=== PATIENT | female | born 1940 | race Caucasian/White ===

== ENCOUNTER → 2018-04-02 08:58 | Outpatient (CLI) | payer MEDICARE, SELFPAY | PROVIDERS: Visit Provider Nurse Practitioner | DX: R00.2 Palpitations (principal) | CPT/HCPCS: 84484 ==

== ENCOUNTER → 2018-04-08 21:49 | Outpatient (CLI) | payer MEDICARE, SELFPAY | PROVIDERS: Visit Provider Nurse Practitioner | DX: N30.90 Cystitis, unspecified without hematuria (principal); N39.41 Urge incontinence | CPT/HCPCS: 87077; 87086; 87088; 87186 ==